=== PATIENT | female | born 1945 | race Caucasian/White ===

== ENCOUNTER → 2016-08-29 | Outpatient (CLI) | payer MEDICARE, BC ==
[2016-08-29 16:26] LABS: ABSOLUTE BASOPHILS # (AUTO) 0.1 10^3/uL (0.0-0.2); ABSOLUTE EOSINOPHILS # (AUTO) 0.1 10^3/uL (0.0-0.6); ABSOLUTE LYMPHOCYTES (AUTO) 1.9 10^3/uL (0.5-4.7); ABSOLUTE MONOCYTES (AUTO) 0.7 10^3/uL (0.1-1.4); ABSOLUTE NEUT (AUTO) 5.1 10^3/uL (1.7-8.2); BASOPHILS % (AUTO) 0.9 % (0-2); EOSINOPHILS % (AUTO) 1.6 % (0-6); HEMATOCRIT 43.3 % (36.0-47.0); HEMOGLOBIN 13.6 g/dL (12.0-15.5); HGB HCT DIFFERENCE -2.5; LYMPHOCYTES % (AUTO) 24.5 % (13-45); MEAN CORPUSCULAR HEMOGLOBIN 28.6 pg (27.0-33.4); MEAN CORPUSCULAR HGB CONC 31.5 g/dL (32.0-36.0); MEAN CORPUSCULAR VOLUME 91 fl (80-97); MONOCYTES % (AUTO) 8.3 % (3-13); RED BLOOD COUNT 4.76 10^6/uL (3.72-5.28); SEGMENTED NEUTROPHILS % (AUTO) 64.7 % (42-78); WHITE BLOOD COUNT 7.9 10^3/uL (4.0-10.5)
== END ==
LOC: OD 15:19
PROVIDERS: ATTEND Internal Medicine Pulmonary Disease
DX: J44.9 Chronic obstructive pulmonary disease, unspecified (principal)
CPT/HCPCS: 36415; 71020; 85025

== ENCOUNTER 2016-10-03 10:04 | Emergency (ER) | payer MEDICARE, BC ==
[2016-10-03] MEDS ORDERED: ASPIRIN 81 MG TABLET, CHEWABLE PO ONE (10:11)
--- NOTE | 2016-10-03 10:33 | ER Document Report ---
ED Medical Screen (RME) - General Chief Complaint: Chest Pain Stated Complaint: CHEST PAIN Mode of Arrival: Ambulatory Information source: Patient Notes: 71 y/o F presents to ED c/o persistent productive cough over the last month. Denies fever or hemoptysis. I have greeted and performed a rapid initial assessment of this patient. A comprehensive ED assessment and evaluation of the patient, analysis of test results and completion of the medical decision making process will be conducted by additional ED providers. TRAVEL OUTSIDE OF THE [place] IN LAST 30 DAYS: No - Related Data Allergies/Adverse Reactions: codeine [Codeine] Allergy (Verified 10/03/16 10:24) Sulfa (Sulfonamide Antibiotics) Allergy (Verified 10/03/16 10:24) Past Medical History - Social History Chew tobacco use (# tins/day): No Frequency of alcohol use: Occasional Drug Abuse: None - Past Medical History Cardiac Medical History: Reports: Hx Hypercholesterolemia, Hx Hypertension Denies: Hx Heart Attack Pulmonary Medical History: Reports: Hx COPD Denies: Hx Asthma Neurological Medical History: Denies: Hx Cerebrovascular Accident, Hx Seizures Renal/ Medical History: Denies: Hx Peritoneal Dialysis GI Medical History: Denies: Hx Hepatitis, Hx Hiatal Hernia, Hx Ulcer Infectious Medical History: Denies: Hx Hepatitis Past Surgical History: Reports: Hx Appendectomy, Hx Bowel Surgery - colon resection, Hx Hysterectomy. Denies: Hx Mastectomy, Hx Open Heart Surgery, Hx Pacemaker Physical Exam - Vital signs Vitals: Temp Pulse Resp BP Pulse Ox 97.9 F 59 L 18 140/77 H 95 10/03/16 10:10/03/16 10:10/03/16 10:10/03/16 10:10/03/16 10:21 - General General appearance: Appears well, Alert In distress: None - Respiratory Respiratory status: No respiratory distress Breath sounds: Rhonchi Course - Vital Signs Vital signs: Temp Pulse Resp BP Pulse Ox 97.9 F 59 L 18 140/77 H 10/03/16 10:10/03/16 10:10/03/16 10:10/03/16 10:10/03/16 10:21
[2016-10-03] MEDS ORDERED: LIDOCAINE 2% VISCOUS SOLN 20 ML UDCUP PO ONE (11:36)
[2016-10-03] MEDS ORDERED: MAG HYDROX/AL HYDROX/SIMETH SUSP 30 ML UDCUP PO ONE (11:36)
[2016-10-03] MEDS ORDERED: METOCLOPRAMIDE HCL ORAL SOLN 10 MG/10 ML UDCUP PO ONE (11:36)
--- NOTE | 2016-10-03 13:35 | ER Document Report ---
ED General - General Chief Complaint: Cough Stated Complaint: CHEST PAIN Mode of Arrival: Ambulatory TRAVEL OUTSIDE OF THE [place] IN LAST 30 DAYS: No - HPI Patient complains to provider of: congestion cough Notes: Patient's coming in for evaluation of congestion and cough. Patient has a history of COPD and states that she currently does smoke. States she saw her PCP for this back in August was started on antibiotic with no relief in her symptoms. Patient states he still has congestion cough and pain in the upper chest throat region. Patient states she then saw a local cardboard cutter Dr. Roth date placed the patient on another antibiotic and pills for cough states that she still is now better. Upon evaluation patient is neurologically she distress. Denies any fevers chills nausea vomiting. - Related Data Allergies/Adverse Reactions: codeine [Codeine] Allergy (Verified 10/03/16 10:24) Sulfa (Sulfonamide Antibiotics) Allergy (Verified 10/03/16 10:24) Past Medical History - General Information source: Patient - Social History Smoking Status: Current Every Day Smoker Chew tobacco use (# tins/day): No Frequency of alcohol use: Occasional Drug Abuse: None Family History: Reviewed & Not Pertinent Patient has suicidal ideation: No Patient has homicidal ideation: No - Past Medical History Cardiac Medical History: Reports: Hx Hypercholesterolemia, Hx Hypertension Denies: Hx Heart Attack Pulmonary Medical History: Reports: Hx COPD Denies: Hx Asthma Neurological Medical History: Denies: Hx Cerebrovascular Accident, Hx Seizures Renal/ Medical History: Denies: Hx Peritoneal Dialysis GI Medical History: Denies: Hx Hepatitis, Hx Hiatal Hernia, Hx Ulcer Infectious Medical History: Denies: Hx Hepatitis Past Surgical History: Reports: Hx Appendectomy, Hx Bowel Surgery - colon resection, Hx Hysterectomy. Denies: Hx Mastectomy, Hx Open Heart Surgery, Hx Pacemaker Review of Systems - Review of Systems Constitutional: No symptoms reported EENT: No symptoms reported Cardiovascular: No symptoms reported Respiratory: Other - Cough congestion Gastrointestinal: No symptoms reported Genitourinary: No symptoms reported Female Genitourinary: No symptoms reported Musculoskeletal: No symptoms reported Skin: No symptoms reported Hematologic/Lymphatic: No symptoms reported Neurological/Psychological: No symptoms reported Physical Exam - Vital signs Vitals: Temp Pulse Resp BP Pulse Ox 97.9 F 59 L 18 140/77 H 95 10/03/16 10:21 10/03/16 10:21 10/03/16 10:21 10/03/16 10:21 10/03/16 10:21 Interpretation: Normal - General General appearance: Appears well, Alert - HEENT Head: Normocephalic, Atraumatic Eyes: Normal Pupils: PERRL - Respiratory Respiratory status: No respiratory distress Chest status: Nontender Breath sounds: Normal Chest palpation: Normal - Cardiovascular Rhythm: Regular Heart sounds: Normal auscultation Murmur: No - Abdominal Inspection: Normal Distension: No distension Bowel sounds: Normal Tenderness: Nontender Organomegaly: No organomegaly - Back Back: Normal, Nontender - Extremities General upper extremity: Normal inspection, Nontender, Normal color, Normal ROM , Normal temperature General lower extremity: Normal inspection, Nontender, Normal color, Normal ROM , Normal temperature, Normal weight bearing. No: Luis's sign - Neurological Neuro grossly intact: Yes Cognition: Normal Orientation: AAOx4 [place] Coma Scale Eye Opening: Spontaneous Sabrina Coma Scale Verbal: Oriented Sabrina Coma Scale Motor: Obeys Commands [place] Coma Scale Total: 15 Speech: Normal Motor strength normal: LUE, RUE, LLE, RLE Sensory: Normal - Psychological Associated symptoms: Normal affect, Normal mood - Skin Skin Temperature: Warm Skin Moisture: Dry Skin Color: Normal Course - Re-evaluation Re-evalutation: 10/03/16 14:49 Patient's chest x-ray was clear. Patient continued to complain of throat pain and congestion. I did give the patient a GI cocktail to see this will aid in her symptoms as that the patient has been on multiple antibiotics possible GERD. This did not relieve the patient's symptoms as that when I reevaluated her she cough to clear her throat and states that she feels still very congested. Splinted the patient more likely this is progression of her COPD and that she may end up with a chronic cough and chronic congestion. Patient was not receptive to this information and started demanding her discharge papers. These were provided to the nursing staff. Otherwise EKG chest x-ray physical examination is not consistent with any critical etiology I feel the patient is safe to follow-up with her PCP or her now cardboard cutter for chronic cough - Vital Signs Vital signs: Temp Pulse Resp BP Pulse Ox 97.9 F 59 L 18 140/77 H 95 10/03/16 10:21 10/03/16 10:21 10/03/16 10:21 10/03/16 10:21 10/03/16 10:21 Discharge - Discharge Clinical Impression: Chronic cough COPD (chronic obstructive pulmonary disease) Qualifiers: COPD type: unspecified COPD Qualified Code(s): J44.9 - Chronic obstructive pulmonary disease, unspecified Condition: Good Disposition: HOME, SELF-CARE Instructions: Chronic Obstructive Lung Disease ([facility]) Additional Instructions: People with COPD who continue to smoke can develop chronic cough chronic congestion. I recommend following up with Dr. Roth for further evaluation. You can take Mucinex [id number] to help out with your congestion. Please make sure that you drink plenty water. Your chest x-ray today and your EKG showed no signs of any serious etiology. Prescriptions: Guaifenesin [Mucinex] 1,200 mg PO BID #30 [id number] Forms: Smoking Cessation Education Referrals: MARSHALL ESCALANTE DO [Primary Care Provider] - Follow up in 3-5 days
[2016-10-03 15:00] VITALS: BP 132/64
--- NOTE | 2016-10-03 15:27 | EKG REPORT ---
SEVERITY:- ABNORMAL ECG - SINUS RHYTHM LEFT ATRIAL ABNORMALITY RIGHT AXIS DEVIATION T ABNORMALITIES, LATERAL LEADS RELATED TO OLD LATERAL WI. : Confirmed by: Jose A Porter MD 03-Oct-2016 15:26:07
== END 2016-10-03 13:34 | disposition home or self-care (01) ==
LOC: ER 10:04
DX: J44.9 Chronic obstructive pulmonary disease, unspecified (principal); R05 Cough; R07.9 Chest pain, unspecified; R09.81 Nasal congestion; F17.210 Nicotine dependence, cigarettes, uncomplicated
CPT/HCPCS: 93005; 99283; 71020; 93010; J3490; A9270

== ENCOUNTER 2016-11-11 08:40 | Inpatient (IN) | payer MEDICARE, BC ==
[2016-11-11] MEDS ORDERED: ASPIRIN 81 MG TABLET, CHEWABLE PO ONE (08:56)
[2016-11-11] MEDS ORDERED: IPRATROPIUM/ALBUTEROL 0.5-2.5 MG/3 ML AMPUL NEB ONE (09:11)
[2016-11-11] MEDS ORDERED: MAGNESIUM SULFATE/D5W 100 ML IV ONE (09:12)
[2016-11-11] MEDS ORDERED: NORMAL SALINE 1000 ML 1,000 ML IV ONE (09:12)
[2016-11-11 09:42] LABS: PROTHROMBIN TIME 12.3 SEC (11.4-15.4)
[2016-11-11 09:43] LABS: ABSOLUTE BASOPHILS # (AUTO) 0.1 10^3/uL (0.0-0.2); ABSOLUTE EOSINOPHILS # (AUTO) 0.1 10^3/uL (0.0-0.6); ABSOLUTE LYMPHOCYTES (AUTO) 1.1 10^3/uL (0.5-4.7); ABSOLUTE MONOCYTES (AUTO) 1.3 10^3/uL (0.1-1.4); ABSOLUTE NEUT (AUTO) 10.9 10^3/uL (1.7-8.2); BASOPHILS % (AUTO) 1.1 % (0-2); EOSINOPHILS % (AUTO) 0.9 % (0-6); HEMATOCRIT 41.7 % (36.0-47.0); HEMOGLOBIN 13.7 g/dL (12.0-15.5); HGB HCT DIFFERENCE -0.6; LYMPHOCYTES % (AUTO) 8.3 % (13-45); MEAN CORPUSCULAR HGB CONC 32.8 g/dL (32.0-36.0); MEAN CORPUSCULAR VOLUME 88 fl (80-97); MONOCYTES % (AUTO) 9.8 % (3-13); RED BLOOD COUNT 4.72 10^6/uL (3.72-5.28); RED CELL DISTRIBUTION WIDTH 13.6 % (11.5-14.0); SEGMENTED NEUTROPHILS % (AUTO) 79.9 % (42-78); WHITE BLOOD COUNT 13.7 10^3/uL (4.0-10.5)
[2016-11-11 09:59] LABS: ALANINE AMINOTRANSFERASE 33 U/L (9-52); ALBUMIN 3.9 g/dL (3.5-5.0); ALKALINE PHOSPHATASE 89 U/L (38-126); ANION GAP 9 (5-19); ASPARTATE AMINO TRANSFERASE 30 U/L (14-36); BILIRUBIN,DIRECT 0.2 mg/dL (0.0-0.4); BILIRUBIN,TOTAL 0.7 mg/dL (0.2-1.3); BLOOD UREA NITROGEN 12 mg/dL (7-20); CALCIUM 9.5 mg/dL (8.4-10.2); CARBON DIOXIDE 30 mmol/L (22-30); CHLORIDE 104 mmol/L (98-107); CREATINE KINASE 55 U/L (30-135); CREATININE RESULT 0.52 mg/dL (0.52-1.25); GLUCOSE 121 mg/dL (75-110); LIPASE 28.5 U/L (23-300); MAGNESIUM 1.7 mg/dL (1.6-2.3); SODIUM 142.7 mmol/L (137-145)
[2016-11-11 10:11] LABS: CREATINE KINASE MB 1.43 ng/mL (<4.55)
[2016-11-11 10:12] LABS: TROPONIN I < 0.012 ng/mL
[2016-11-11] MEDS ORDERED: METHYLPREDNISOLONE INJ 125 MG/2 ML SDV IV ONE ×2 (11:51→12:59)
--- NOTE | 2016-11-11 13:08 | ER Document Report ---
ED General - General Chief Complaint: Breathing Difficulty Stated Complaint: DIFFICULTY BREATHING, FEVER TRAVEL OUTSIDE OF THE [place] IN LAST 30 DAYS: No - HPI Patient complains to provider of: difficulty in breathing Notes: Patient coming in for evaluation of shortness of breath difficulty in breathing ongoing for the past few days. Patient states approximately one week for this she was having multiple bouts of nausea vomiting diarrhea. Denies any recent travel denies temperature home others patient states that 99 is a fever for her. Patient does have a history of COPD to see local racking technician Dr. Roth. Patient denies any recent antibiotics last 2 weeks however multiple antibiotics through the month of September and October. Patient also pointed chronic cough white sputum production. Denies chest pain abdominal pain patient was found to be hypoxic patient was placed on oxygen - Related Data Allergies/Adverse Reactions: codeine [Codeine] Allergy (Verified 11/11/16 08:46) Sulfa (Sulfonamide Antibiotics) Allergy (Verified 11/11/16 08:46) Past Medical History - Social History Smoking Status: Unknown if Ever Smoked Family History: Reviewed & Not Pertinent Patient has suicidal ideation: No Patient has homicidal ideation: No - Past Medical History Cardiac Medical History: Reports: Hx Hypercholesterolemia, Hx Hypertension Denies: Hx Heart Attack Pulmonary Medical History: Reports: Hx COPD Denies: Hx Asthma Neurological Medical History: Denies: Hx Cerebrovascular Accident, Hx Seizures Renal/ Medical History: Denies: Hx Peritoneal Dialysis GI Medical History: Denies: Hx Hepatitis, Hx Hiatal Hernia, Hx Ulcer Infectious Medical History: Denies: Hx Hepatitis Past Surgical History: Reports: Hx Appendectomy, Hx Bowel Surgery - colon resection, Hx Hysterectomy. Denies: Hx Mastectomy, Hx Open Heart Surgery, Hx Pacemaker Review of Systems - Review of Systems Constitutional: No symptoms reported EENT: No symptoms reported Cardiovascular: No symptoms reported Respiratory: Short of breath, Wheezing Gastrointestinal: No symptoms reported Genitourinary: No symptoms reported Female Genitourinary: No symptoms reported Musculoskeletal: No symptoms reported Skin: No symptoms reported Hematologic/Lymphatic: No symptoms reported Neurological/Psychological: No symptoms reported -: Yes All other systems reviewed and negative Physical Exam - Vital signs Vitals: Temp Pulse Resp BP Pulse Ox 99.0 F 87 42 H 133/92 H 94 11/11/16 08:48 11/11/16 08:48 11/11/16 08:48 11/11/16 08:48 11/11/16 08:48 Interpretation: Normal - General General appearance: Appears well, Alert - HEENT Head: Normocephalic, Atraumatic Eyes: Normal Pupils: PERRL - Respiratory Respiratory status: Tachypnea Chest status: Nontender Breath sounds: Wheezing Chest palpation: Normal - Cardiovascular Rhythm: Regular Heart sounds: Normal auscultation Murmur: No - Abdominal Inspection: Normal Distension: No distension Bowel sounds: Normal Tenderness: Nontender Organomegaly: No organomegaly - Back Back: Normal, Nontender - Extremities General upper extremity: Normal inspection, Nontender, Normal color, Normal ROM , Normal temperature General lower extremity: Normal inspection, Nontender, Normal color, Normal ROM , Normal temperature, Normal weight bearing. No: Luis's sign - Neurological Neuro grossly intact: Yes Cognition: Normal Orientation: AAOx4 [place] Coma Scale Eye Opening: Spontaneous Sabrina Coma Scale Verbal: Oriented [place] Coma Scale Motor: Obeys Commands Be[place] Coma Scale Total: 15 Speech: Normal Motor strength normal: LUE, RUE, LLE, RLE Sensory: Normal - Psychological Associated symptoms: Normal affect, Normal mood - Skin Skin Temperature: Warm Skin Moisture: Dry Skin Color: Normal Course - Re-evaluation Re-evalutation: 11/11/16 14:50 Patient's lab work chest x-ray did not reveal any critical etiology. Patient states improvement upon receiving magnesium steroids and albuterol. Patient was ambulated around the ER however became hypoxic. Patient's case was discussed with hospitalist will admit patient for further evaluation - Vital Signs Vital signs: Temp Pulse Resp BP Pulse Ox 99.0 F 87 22 H 160/81 H 93 11/11/16 08:48 11/11/16 08:48 11/11/16 11:01 11/11/16 14:06 11/11/16 14:06 - Laboratory Result Diagrams: 11/11/16 09:23 11/11/16 09:23 Laboratory results interpreted by me: 11/11/16 11/11/16 11/11/16 09:23 09:23 11:30 WBC 13.7 H Seg Neutrophils % 79.9 H Lymphocytes % 8.3 L Absolute Neutrophils 10.9 H Glucose 121 H Urine Ketones TRACE H Discharge - Discharge Clinical Impression: COPD exacerbation, Hypoxia Admitting Provider: Hospitalist Stella Diaz
[2016-11-11 14:07] LABS: AMORPHOUS SEDIMENT,URINE TRACE /HPF; APPEARANCE,URINE CLOUDY; BILIRUBIN,URINE NEGATIVE (NEGATIVE); GLUCOSE, URINE NEGATIVE (NEGATIVE); KETONES,URINE TRACE mg/dL (NEGATIVE); LEUKOCYTE ESTERASE,URINE NEGATIVE (NEGATIVE); NITRITE,URINE NEGATIVE (NEGATIVE); PROTEIN,URINE NEGATIVE (NEGATIVE); URINE SPECIFIC GRAVITY 1.006; UROBILINOGEN,URINE NEGATIVE mg/dL (<2.0)
[2016-11-11] MEDS ORDERED: ALBUTEROL SULFATE 0.083% NEB 2.5 MG/3 ML AMPUL NEB ONE (14:48)
[2016-11-11] MEDS ORDERED: ONDANSETRON HCL INJ/PF 4 MG/2 ML SDV IV PRN (15:06)
[2016-11-11] MEDS ORDERED: LEVALBUTEROL HCL NEB 1.25 MG/3 ML AMPUL NEB PRN (15:06)
--- NOTE | 2016-11-11 15:33 | PDOC H&P ---
History of Present Illness Admission Date/PCP: 11/11/16 13:13 MARSHALL ESCAALNTE DO Patient complains of: Shortness of breath History of Present Illness: FLORES NIELSON is a 71 year old female, history of COPD apparently started getting short of breath for the last 5 days. Patient reports she was exposed to viral infection last week where she had nausea and episode of vomiting and diarrhea. Symptoms eventually resolved after 3 days. No intake of antibiotic recently. No intake of foods. No recent travel. Right after getting better from a stomach virus patient started to develop shortness of breath. There is cough that is nonproductive. No pleurisy. There is associated wheezing and some lightheadedness. Patient will take her inhaler affording some relief of symptoms. Likewise there is associated low-grade fever. Patient initially had a sore throat as well that spontaneously resolved. Shortness of breath persisted. There is no diaphoresis, no palpitation, no PND or orthopnea, no increasing lower extremity swelling. Symptoms got worse for the past 24 hours, where she woke up this morning with shortness of breath and wheezing, with a lot of dry coughing. Patient took her pulse oximeter and noted that her O2 saturation was in the 70s. She started panicking, but she was able to move around where her oxygen saturation improving the 80s, her daughter came in who brought her to the hospital. Patient was given nebulizers, steroids with some relief of symptoms. The patient was then referred for admission. No hemoptysis noted. No weight loss. No leg pain or swelling. Past Medical History Cardiac Medical History: Reports: Hyperlipidema, Hypertension Denies: Myocardial Infarction Pulmonary Medical History: Reports: Chronic Obstructive Pulmonary Disease (COPD) Denies: Asthma Neurological Medical History: Denies: Seizures GI Medical History: Denies: Hepatitis, Hiatal Hernia Hematology: Denies: Anemia, Sickle Cell Disease Past Surgical History Past Surgical History: Reports: Appendectomy, Hysterectomy Denies: Amputation, Mastectomy, Pacemaker Social History Information Source: Patient Smoking Status: Current Every Day Smoker Frequency of Alcohol Use: Rare Hx Recreational Drug Use: No Drugs: None Family History Family History: Malignancy - Colon cancer, Other - Kidney disease Parental Family History Reviewed: Yes Children Family History Reviewed: Yes Sibling(s) Family History Reviewed.: Yes Medication/Allergy Home Medications: Budesonide/Formoterol Fumarate [Symbicort HFA 160-4.5 mcg Inhaler 6 gm] 2 puff IH BID 11/11/16 Clonazepam [Klonopin] 0.5 mg PO BID 11/11/16 Lisinopril [Prinivil 10 mg Tablet] 10 mg PO DAILY 11/11/16 Paroxetine HCl [Paxil 20 mg Tablet] 20 mg PO QPM 11/11/16 Simvastatin [Zocor 20 mg Tablet] 20 mg PO QPM 11/11/16 Trazodone HCl [Desyrel 50 mg Tablet] 50 mg PO BID 11/11/16 Allergies/Adverse Reactions: codeine [Codeine] Allergy (Verified 11/11/16 08:46) Sulfa (Sulfonamide Antibiotics) Allergy (Verified 11/11/16 08:46) Review of Systems Constitutional: PRESENT: fatigue, weakness - Generalized. ABSENT: chills, fever (s), headache(s), weight gain, weight loss Eyes: ABSENT: visual disturbances Ears: ABSENT: hearing changes Nose, Mouth, and Throat: PRESENT: sore throat - Resolved. ABSENT: mouth pain Cardiovascular: PRESENT: dyspnea on exertion. ABSENT: chest pain, edema, orthropnea, palpitations Respiratory: PRESENT: cough, dyspnea. ABSENT: hemoptysis, sputum Gastrointestinal: ABSENT: abdominal pain, constipation, diarrhea, dysphagia, hematemesis, hematochezia, melena, nausea, vomiting Genitourinary: ABSENT: difficulty urinating, dysuria, hematuria Musculoskeletal: ABSENT: joint swelling Integumentary: ABSENT: pruritus, rash, wounds Neurological: ABSENT: abnormal gait, abnormal speech, confusion, dizziness, focal weakness, syncope Psychiatric: ABSENT: anxiety, depression, homidical ideation, suicidal ideation Endocrine: ABSENT: cold intolerance, heat intolerance, polydipsia, polyuria Hematologic/Lymphatic: ABSENT: easy bleeding, easy bruising Physical Exam Vital Signs: Temp Pulse Resp BP Pulse Ox 99.0 F 87 22 H 160/81 H 93 11/11/16 08:48 11/11/16 08:48 11/11/16 11:01 11/11/16 14:06 11/11/16 14:06 General appearance: PRESENT: no acute distress, cooperative, mild distress, well -developed, well-nourished, other - In complete sentences with some interruptions Head exam: PRESENT: atraumatic, normocephalic Eye exam: PRESENT: conjunctiva pink, EOMI, PERRLA. ABSENT: scleral icterus Ear exam: PRESENT: normal external ear exam. ABSENT: drainage Mouth exam: PRESENT: moist, neck supple, tongue midline Throat exam: ABSENT: post pharyngeal erythema, tonsillar erythema Neck exam: ABSENT: carotid bruit, JVD, lymphadenopathy, thyromegaly Respiratory exam: PRESENT: decreased breath sounds - Bilateral, wheezes - Minimal. ABSENT: rales, rhonchi Cardiovascular exam: PRESENT: RRR. ABSENT: diastolic murmur, rubs, systolic murmur Pulses: PRESENT: normal dorsalis pedis pul Vascular exam: PRESENT: normal capillary refill GI/Abdominal exam: PRESENT: normal bowel sounds, soft. ABSENT: distended, guarding, mass, organolmegaly, rebound, tenderness Rectal exam: PRESENT: deferred Extremities exam: PRESENT: full ROM. ABSENT: calf tenderness, clubbing, pedal edema Neurological exam: PRESENT: alert, awake, oriented to person, oriented to place , oriented to time, oriented to situation Psychiatric exam: PRESENT: appropriate affect, normal mood. ABSENT: homicidal ideation, suicidal ideation Skin exam: PRESENT: dry, intact, warm. ABSENT: cyanosis, rash Results Impressions: Chest X-Ray 11/11/16 08:56 IMPRESSION: NO ACUTE RADIOGRAPHIC FINDING IN THE CHEST. Assessment & Plan - Diagnosis (1) COPD exacerbation Is this a current diagnosis for this admission?: Yes (2) Hypoxia Is this a current diagnosis for this admission?: Yes (3) Leukocytosis, unspecified Qualifiers: Leukocytosis type: unspecified Qualified Code(s): D72.829 - Elevated white blood cell count, unspecified Is this a current diagnosis for this admission?: Yes (4) Essential hypertension Is this a current diagnosis for this admission?: Yes (5) Hyperlipidemia Qualifiers: Hyperlipidemia type: unspecified Qualified Code(s): E78.5 - Hyperlipidemia, unspecified Is this a current diagnosis for this admission?: Yes - Time Time Spent: 50 to 70 Minutes Anticipated discharge: Home Within: within 72 hours - Inpatient Certification Based on my medical assessment, after consideration of the patient's comorbidities, presenting symptoms, or acuity I expect that the services needed warrant INPATIENT care.: Yes I certify that my determination is in accordance with my understanding of Medicare's requirements for reasonable and necessary INPATIENT services [42 CFR 412.3e].: Yes Medical Necessity: Significant Comorbidiites Make Outpatient Treatment Too Risky , Need Close Monitoring Due to Risk of Patient Decompensation, Need For Continuous Telemetry Monitoring, Risk of Complication if Not Cared For in Hospital Post Hospital Care: D/C Rug Washer Documentation - Plan Summary Plan Summary: The patient will be admitted to telemetry. Gentle IV hydration will be started , intravenous steroid and [id number] nebulizers will also be started. We will put the patient on IV antibiotics. Supplemental oxygen will be given. DVT prophylaxis with Lovenox will be placed. Further testing depends on the initial evaluation as outlined above.
[2016-11-11] MEDS ORDERED: ENOXAPARIN SODIUM INJ 40 MG/0.4 ML DISP.SYRIN SUBCUT ONE (17:00)
[2016-11-11] MEDS ORDERED: (PENDING PHARMACY ID) (Clonazepam [Klonopin] 0.5 MG) PO SCH (18:00)
[2016-11-11] MEDS ORDERED: NICOTINE 21 MG/24 HR PATCH.TD24 TD ONE (18:21)
[2016-11-11] MEDS: IPRATROPIUM BROMIDE 0.02% NEB 0.5 MG/2.5 ML AMPUL NEB SCH ×2 (18:25→22:02)
[2016-11-11] MEDS: LEVALBUTEROL HCL NEB 1.25 MG/3 ML AMPUL NEB SCH ×2 (18:26→22:02)
[2016-11-11] MEDS: NORMAL SALINE 1000 ML 1,000 ML IV PRN (18:30)
[2016-11-11] MEDS: TRAZODONE HCL 50 MG TABLET PO SCH (20:17)
[2016-11-11] MEDS: DOCUSATE SODIUM 100 MG CAPSULE PO SCH (20:17)
[2016-11-11] MEDS: CLONAZEPAM 1 MG TABLET PO SCH (20:17)
[2016-11-11] MEDS: PAROXETINE HCL 20 MG TABLET PO SCH (20:17)
[2016-11-11] MEDS: CIPROFLOXACIN 400 MG/D5W RTU 400 MG/200 ML RTUPB IV SCH (21:02)
[2016-11-11] MEDS: METHYLPREDNISOLONE INJ 125 MG/2 ML SDV IV SCH (21:02)
--- NOTE | 2016-11-11 22:24 | EKG REPORT ---
SEVERITY:- ABNORMAL ECG - SINUS RHYTHM AINSLEY, CONSIDER BIATRIAL ABNORMALITIES RIGHT AXIS DEVIATION : Confirmed by: Farhana García MD 11-Nov-2016 22:24:03
[2016-11-12] MEDS: LEVALBUTEROL HCL NEB 1.25 MG/3 ML AMPUL NEB SCH ×5 (00:59→20:29)
[2016-11-12] MEDS: IPRATROPIUM BROMIDE 0.02% NEB 0.5 MG/2.5 ML AMPUL NEB SCH ×5 (00:59→20:29)
[2016-11-12] MEDS: SIMVASTATIN 10 MG TABLET PO SCH ×2 (02:39→23:12)
[2016-11-12] MEDS: METHYLPREDNISOLONE INJ 125 MG/2 ML SDV IV SCH ×4 (02:39→23:14)
[2016-11-12] MEDS: ACETAMINOPHEN 325 MG TABLET PO PRN (02:43)
[2016-11-12] MEDS: NORMAL SALINE 1000 ML 1,000 ML IV PRN (02:43)
[2016-11-12] MEDS: LANSOPRAZOLE 30 MG TAB.RAP.DR PO SCH (05:34)
[2016-11-12] MEDS: CIPROFLOXACIN 400 MG/D5W RTU 400 MG/200 ML RTUPB IV SCH ×2 (05:35→17:39)
[2016-11-12 06:42] LABS: APPEARANCE,URINE CLEAR; BILIRUBIN,URINE NEGATIVE (NEGATIVE); GLUCOSE, URINE 50 mg/dL (NEGATIVE); KETONES,URINE NEGATIVE (NEGATIVE); LEUKOCYTE ESTERASE,URINE NEGATIVE (NEGATIVE); NITRITE,URINE NEGATIVE (NEGATIVE); PROTEIN,URINE NEGATIVE (NEGATIVE); URINE SPECIFIC GRAVITY 1.008; UROBILINOGEN,URINE NEGATIVE mg/dL (<2.0)
[2016-11-12 07:41] LABS: MAGNESIUM 1.8 mg/dL (1.6-2.3)
[2016-11-12] MEDS: ENOXAPARIN SODIUM INJ 40 MG/0.4 ML DISP.SYRIN SUBCUT SCH (08:30)
[2016-11-12] MEDS: LISINOPRIL 10 MG TABLET PO SCH (10:03)
[2016-11-12] MEDS: CLONAZEPAM 1 MG TABLET PO SCH ×3 (10:09→23:13)
[2016-11-12] MEDS: DOCUSATE SODIUM 100 MG CAPSULE PO SCH ×2 (10:09→17:40)
[2016-11-12] MEDS: TRAZODONE HCL 50 MG TABLET PO SCH ×3 (10:10→23:13)
[2016-11-12] MEDS ORDERED: NORMAL SALINE 1000 ML 1,000 ML IV PRN (11:38)
--- NOTE | 2016-11-12 11:42 | PDOC PROGRESS REPORT ---
Subjective Progress Note for:: 11/12/16 Subjective:: Breathing is much better. Wheezing has resolved. However the patient started to develop some jitteriness, mild tremors. No reported temperature spikes, nausea or vomiting, diarrhea, nor chest pain. Patient denies PND or orthopnea. Physical Exam Vital Signs: Temp Pulse Resp BP Pulse Ox 97.9 F 72 20 153/74 H 93 11/12/16 08:07 11/12/16 09:39 11/12/16 09:39 11/12/16 08:07 11/12/16 09:39 Intake & Output 11/11/16 11/12/16 11/13/16 06:59 06:59 06:59 Intake Total 440 Balance 440 Weight 76.657 kg General appearance: PRESENT: no acute distress, cooperative Head exam: PRESENT: normocephalic Eye exam: PRESENT: EOMI Mouth exam: PRESENT: moist, neck supple Neck exam: ABSENT: JVD Respiratory exam: PRESENT: decreased breath sounds - Bilateral, other - Good air entry however. ABSENT: rhonchi, wheezes Cardiovascular exam: PRESENT: RRR. ABSENT: gallop GI/Abdominal exam: PRESENT: normal bowel sounds, soft. ABSENT: distended, tenderness Extremities exam: ABSENT: pedal edema Neurological exam: PRESENT: alert, awake, oriented to person, oriented to place , oriented to time, oriented to situation Skin exam: PRESENT: dry, warm. ABSENT: cyanosis Results Laboratory Results: 11/12/16 11/12/16 05:45 06:16 Phosphorus 4.0 Magnesium 1.8 Urine Color YELLOW Urine Appearance CLEAR Urine pH 6.0 Ur Specific [place] 1.008 Urine Protein NEGATIVE Urine Glucose (UA) 50 H Urine Ketones NEGATIVE Urine Blood NEGATIVE Urine Nitrite NEGATIVE Ur Leukocyte Esterase NEGATIVE Urine RBC (Auto) 1 Impressions: Chest X-Ray 11/11/16 08:56 IMPRESSION: NO ACUTE RADIOGRAPHIC FINDING IN THE CHEST. Assessment & Plan - Diagnosis (1) COPD exacerbation Is this a current diagnosis for this admission?: Yes (2) Hypoxia Is this a current diagnosis for this admission?: Yes (3) Leukocytosis, unspecified Qualifiers: Leukocytosis type: unspecified Qualified Code(s): D72.829 - Elevated white blood cell count, unspecified Is this a current diagnosis for this admission?: Yes (4) Essential hypertension Is this a current diagnosis for this admission?: Yes (5) Hyperlipidemia Qualifiers: Hyperlipidemia type: unspecified Qualified Code(s): E78.5 - Hyperlipidemia, unspecified Is this a current diagnosis for this admission?: Yes - Time Time Spent with patient: 25-34 minutes - Plan Summary Plan Summary: We will decrease the steroid dose and frequency. We will decrease the nebulizer frequency. Out of bed. Physical therapy. Continue other medication and supportive care. If patient continues to improve by the morning likely can be discharged back home.
[2016-11-12] MEDS ORDERED: NICOTINE 21 MG/24 HR PATCH.TD24 TD ONE (14:00)
[2016-11-12] MEDS: PAROXETINE HCL 20 MG TABLET PO SCH ×2 (17:40→23:13)
[2016-11-13] MEDS: ACETAMINOPHEN 325 MG TABLET PO PRN ×3 (00:27→14:55)
[2016-11-13] MEDS: LEVALBUTEROL HCL NEB 1.25 MG/3 ML AMPUL NEB SCH ×4 (02:13→19:45)
[2016-11-13] MEDS: IPRATROPIUM BROMIDE 0.02% NEB 0.5 MG/2.5 ML AMPUL NEB SCH ×4 (02:13→19:44)
[2016-11-13] MEDS: CIPROFLOXACIN 400 MG/D5W RTU 400 MG/200 ML RTUPB IV SCH ×2 (06:33→17:21)
[2016-11-13] MEDS: LANSOPRAZOLE 30 MG TAB.RAP.DR PO SCH (06:33)
[2016-11-13] MEDS: METHYLPREDNISOLONE INJ 125 MG/2 ML SDV IV SCH ×3 (06:33→20:41)
[2016-11-13] MEDS: NICOTINE 21 MG/24 HR PATCH.TD24 TD SCH (10:07)
[2016-11-13] MEDS: LISINOPRIL 10 MG TABLET PO SCH (10:07)
[2016-11-13] MEDS: DOCUSATE SODIUM 100 MG CAPSULE PO SCH ×2 (10:07→17:20)
[2016-11-13] MEDS: ENOXAPARIN SODIUM INJ 40 MG/0.4 ML DISP.SYRIN SUBCUT SCH (10:08)
[2016-11-13] MEDS: BUDESONIDE/FORMOTEROL 160-4.5 MCG 60 PUFF/6 GM MDI IH SCH ×2 (10:10→17:21)
[2016-11-13] MEDS: TRAZODONE HCL 50 MG TABLET PO SCH ×2 (10:11→21:53)
[2016-11-13] MEDS: CLONAZEPAM 1 MG TABLET PO SCH (10:11)
--- NOTE | 2016-11-13 11:07 | PDOC PROGRESS REPORT ---
Subjective Progress Note for:: 11/13/16 Subjective:: Patient's shortness of breath is better but still having difficulty especially on ambulation. Denies any nausea or vomiting, diarrhea, chills or fever. Patient reports that she was able to move around for 30 minutes yesterday but started feeling more short of breath at the end. Physical Exam Vital Signs: Temp Pulse Resp BP Pulse Ox 98.2 F 68 20 154/85 H 99 11/13/16 09:00 11/13/16 09:00 11/13/16 09:00 11/13/16 09:00 11/13/16 09:00 Intake & Output 11/12/16 11/13/16 11/14/16 06:59 06:59 06:59 Intake Total 440 1935 Output Total 1500 Balance 440 435 Weight 76.657 kg 79.7 kg General appearance: PRESENT: no acute distress Head exam: PRESENT: normocephalic Eye exam: PRESENT: EOMI Mouth exam: PRESENT: moist, neck supple Neck exam: ABSENT: JVD Respiratory exam: PRESENT: rhonchi - scattered. ABSENT: wheezes Cardiovascular exam: PRESENT: RRR. ABSENT: gallop GI/Abdominal exam: PRESENT: soft. ABSENT: distended, tenderness Extremities exam: ABSENT: pedal edema Neurological exam: PRESENT: alert, awake Skin exam: PRESENT: dry, warm. ABSENT: cyanosis Results Impressions: Chest X-Ray 11/11/16 08:56 IMPRESSION: NO ACUTE RADIOGRAPHIC FINDING IN THE CHEST. Assessment & Plan - Diagnosis (1) COPD exacerbation Is this a current diagnosis for this admission?: Yes (2) Hypoxia Is this a current diagnosis for this admission?: Yes (3) Leukocytosis, unspecified Qualifiers: Leukocytosis type: unspecified Qualified Code(s): D72.829 - Elevated white blood cell count, unspecified Is this a current diagnosis for this admission?: Yes (4) Essential hypertension Is this a current diagnosis for this admission?: Yes (5) Hyperlipidemia Qualifiers: Hyperlipidemia type: unspecified Qualified Code(s): E78.5 - Hyperlipidemia, unspecified Is this a current diagnosis for this admission?: Yes - Time Time Spent with patient: 25-34 minutes - Plan Summary Plan Summary: We are going to push him back intravenous steroids, discontinue prednisone. Obtain CTA of the chest to evaluate for pulmonary embolism. Likewise this will define pulmonary anatomy as well for possible pneumonia. Continue him on antibiotics for now. Continue bronchodilators. Continue supportive care.
[2016-11-13] MEDS: CLONAZEPAM 1 MG TABLET PO PRN ×2 (14:55→21:53)
[2016-11-13] MEDS: SIMVASTATIN 10 MG TABLET PO SCH (21:53)
[2016-11-13] MEDS: PAROXETINE HCL 20 MG TABLET PO SCH (21:53)
[2016-11-14] MEDS: LEVALBUTEROL HCL NEB 1.25 MG/3 ML AMPUL NEB SCH ×3 (02:03→15:07)
[2016-11-14] MEDS: IPRATROPIUM BROMIDE 0.02% NEB 0.5 MG/2.5 ML AMPUL NEB SCH ×3 (02:03→15:07)
[2016-11-14] MEDS: METHYLPREDNISOLONE INJ 125 MG/2 ML SDV IV SCH ×2 (03:02→08:40)
[2016-11-14] MEDS: LANSOPRAZOLE 30 MG TAB.RAP.DR PO SCH (06:30)
[2016-11-14] MEDS: CIPROFLOXACIN 400 MG/D5W RTU 400 MG/200 ML RTUPB IV SCH (06:30)
[2016-11-14] MEDS: ENOXAPARIN SODIUM INJ 40 MG/0.4 ML DISP.SYRIN SUBCUT SCH (08:40)
[2016-11-14] MEDS: BUDESONIDE/FORMOTEROL 160-4.5 MCG 60 PUFF/6 GM MDI IH SCH (09:14)
[2016-11-14] MEDS: DOCUSATE SODIUM 100 MG CAPSULE PO SCH (09:15)
[2016-11-14] MEDS: LISINOPRIL 10 MG TABLET PO SCH (09:15)
[2016-11-14] MEDS: TRAZODONE HCL 50 MG TABLET PO SCH (09:15)
[2016-11-14] MEDS: NICOTINE 21 MG/24 HR PATCH.TD24 TD SCH (09:16)
--- NOTE | 2016-11-14 09:59 | PDOC DISCHARGE SUMMARY ---
General - Admit/Disc Date/PCP Admission Date/Primary Care Provider: 11/11/16 15:07 MARSHALL ESCALANTE, Discharge Date: 11/14/16 - Discharge Diagnosis (1) COPD exacerbation Is this a current diagnosis for this admission?: Yes (2) Hypoxia Is this a current diagnosis for this admission?: Yes (3) Acute bronchitis Is this a current diagnosis for this admission?: Yes (4) Essential hypertension Is this a current diagnosis for this admission?: Yes (5) Hyperlipidemia Is this a current diagnosis for this admission?: Yes - Additional Information Discharge Diet: Cardiac - low-fat low-salt Discharge Activity: Activity As Tolerated, Balance Activity w/Rest, Slowly Increase Activity Home Medications: Budesonide/Formoterol Fumarate [Symbicort HFA 160-4.5 mcg Inhaler 6 gm] 2 puff IH BID 11/11/16 Clonazepam [Klonopin] 0.5 mg PO BID 11/11/16 Lisinopril [Prinivil 10 mg Tablet] 10 mg PO DAILY 11/11/16 Paroxetine HCl [Paxil 20 mg Tablet] 20 mg PO QPM 11/11/16 Simvastatin [Zocor 20 mg Tablet] 20 mg PO QPM 11/11/16 Trazodone HCl [Desyrel 50 mg Tablet] 50 mg PO BID 11/11/16 Ipratropium/Albuterol Sulfate [Duoneb 3 ml Ampul] 3 ml NEB [id number] PRN #120 vial.neb 11/14/16 Levofloxacin [Levaquin 750 mg Tablet] 750 mg PO DAILY #7 tab 11/14/16 Prednisone [Sterapred Ds] 1 pkg PO ASDIR PRN 12 Days 11/14/16 Additional Information: Stop smoking. Home oxygen at 2 L nasal cannula. History of Present Illness Patient complains of: Shortness of breath History of Present Illness: FLORES NIELSON is a 71 year old female, history of COPD apparently started getting short of breath for the last 5 days. Patient reports she was exposed to viral infection last week where she had nausea and episode of vomiting and diarrhea. Symptoms eventually resolved after 3 days. No intake of antibiotic recently. No intake of foods. No recent travel. Right after getting better from a stomach virus patient started to develop shortness of breath. There is cough that is nonproductive. No pleurisy. There is associated wheezing and some lightheadedness. Patient will take her inhaler affording some relief of symptoms. Likewise there is associated low-grade fever. Patient initially had a sore throat as well that spontaneously resolved. Shortness of breath persisted. There is no diaphoresis, no palpitation, no PND or orthopnea, no increasing lower extremity swelling. Symptoms got worse for the past 24 hours, where she woke up this morning with shortness of breath and wheezing, with a lot of dry coughing. Patient took her pulse oximeter and noted that her O2 saturation was in the 70s. She started panicking, but she was able to move around where her oxygen saturation improving the 80s, her daughter came in who brought her to the hospital. Patient was given nebulizers, steroids with some relief of symptoms. The patient was then referred for admission. No hemoptysis noted. No weight loss. No leg pain or swelling. Hospital Course Hospital Course: The patient was admitted to telemetry. Patient was started on intravenous antibiotic, [id number] nebulizer, and intravenous steroids. Patient's respiratory discomfort improved, but continues to have intermittent paroxysmal coughing. Patient measures her oxygen saturation with her oximeter and sometimes it is low like 88. Patient had a CT scan of the chest performed, showing no infiltrate, nor pulmonary embolism. She was continued on her anxiety medication and likewise placed on nicotine patch as patient is a chronic smoker . Patient initially reluctant about going home with home oxygen but eventually agreed for home oxygen as she wants to go back home and continue treatment on an outpatient basis. The rest of the hospital stays unremarkable. environmental emergencies planner was consulted for home oxygen and home health for physical therapy. Patient advised to stop smoking. Physical Exam Vital Signs: Temp Pulse Resp BP Pulse Ox 97.9 F 75 16 139/79 H 92 11/14/16 00:35 11/14/16 08:17 11/14/16 08:17 11/14/16 00:35 11/14/16 08:17 Intake & Output 11/13/16 11/14/16 11/15/16 06:59 06:59 06:59 Intake Total 1935 1300 Output Total 1500 Balance 435 1300 Weight 79.7 kg 81.2 kg General appearance: PRESENT: no acute distress, cooperative Head exam: PRESENT: normocephalic Eye exam: PRESENT: EOMI Mouth exam: PRESENT: moist, neck supple Neck exam: ABSENT: JVD Respiratory exam: PRESENT: rhonchi - occasional. ABSENT: wheezes Cardiovascular exam: PRESENT: RRR. ABSENT: gallop GI/Abdominal exam: PRESENT: soft. ABSENT: distended, tenderness Extremities exam: ABSENT: pedal edema Neurological exam: PRESENT: alert, awake, oriented to situation Skin exam: PRESENT: dry, warm. ABSENT: cyanosis Results Impressions: Chest X-Ray 11/11/16 08:56 IMPRESSION: NO ACUTE RADIOGRAPHIC FINDING IN THE CHEST. Chest/Abdomen CTA 11/13/16 00:00 IMPRESSION: 1. No acute or suspicious thoracic findings. No pulmonary embolus. Mild COPD. Qualifiers PATEINT BEING DISCHARGED WITH ANY OF THE FOLLOWING DIAGNOSIS?: No Plan Discharge Plan: Follow-up with primary care physician in 3-5 days. Time Spent: Less than 30 Minutes
[2016-11-14 13:25] VITALS: BP 130/70
== END 2016-11-14 14:00 | disposition home health service (06) | DRG 192 ==
LOC: ER 08:40 → EH 13:13 → UNDOADMIN 13:13 → EH 15:07 → 4N 11-12 01:51
PROC: 3E0F73Z Introduction of Anti-inflammatory into Respiratory Tract, Via Natural or Artificial Opening (ICD-10-PCS; principal; 2016-11-11)
DX: J44.1 Chronic obstructive pulmonary disease with (acute) exacerbation (principal); J20.9 Acute bronchitis, unspecified; J44.0 Chronic obstructive pulmonary disease with (acute) lower respiratory infection; I10 Essential (primary) hypertension; E78.5 Hyperlipidemia, unspecified; R09.02 Hypoxemia; F17.200 Nicotine dependence, unspecified, uncomplicated; F41.9 Anxiety disorder, unspecified; Z79.899 Other long term (current) drug therapy; Z90.710 Acquired absence of both cervix and uterus; Z80.0 Family history of malignant neoplasm of digestive organs; Z88.6 Allergy status to analgesic agent; Z88.2 Allergy status to sulfonamides; Z90.49 Acquired absence of other specified parts of digestive tract; D72.829 Elevated white blood cell count, unspecified
CPT/HCPCS: 36415; 71010; 71275; 80053; 81001; 82550; 82553; 83690; 83735; 84100; 84484; 85025; 85610; 87804; 93005; 93010; 94640; 96365; 99285; G8978-GP; G8979-GP; J0744; J1650; J2930; J3475; J3490; J7030; J7620

== ENCOUNTER 2017-11-13 07:40 | Day surgery (SDC) | payer MEDICARE, BC ==
[~2017-11-13 07:40] MED LIST: PROPOFOL INJ 200 MG/20 ML VIAL IV ONE
[2017-11-13 09:12] VITALS: BP 138/63
--- NOTE | 2017-11-13 13:12 | Operative Report ---
Operative Report DATE OF SURGERY: 11/13/17 Operative Report: The risks, benefits and alternatives of the procedure including risks of bleeding, perforation requiring surgery are explained to the patient in detail and informed consent is obtained. Patient is taken back to the endoscopy suite and placed in a left, lateral decubital position. Timeout is called. Propofol medication is administered. A rectal examination is done which did not reveal any masses, tears or fissures. An Olympus videoscope was inserted into the patient's rectum. It is carefully advanced all the way to the cecum. The cecum is identified by the usual anatomical landmarks including the ileocecal valve as well as the appendiceal office. Photodocumentation is obtained. The scope was then sequentially pulled back via the various segments of the colon including the ascending colon, hepatic flexure, transverse colon, splenic flexure, descending colon finally in to the rectosigmoid portions of the colon. Retroflexion maneuvers performed. Prep is good. PREOPERATIVE DIAGNOSIS: Personal history of polyps POSTOPERATIVE DIAGNOSIS: 2 diminutive polyps removed via biopsy forceps. Internal hemorrhoids OPERATION: Colonoscopy with biopsy SURGEON: BARB NICHOLSON ANESTHESIA: LMAC TISSUE REMOVED OR ALTERED: As noted above. COMPLICATIONS: None. ESTIMATED BLOOD LOSS: None. INTRAOPERATIVE FINDINGS: As noted above. PROCEDURE: Patient tolerated procedure well. No immediate postprocedure complications are noted. Patient discharged in good condition. Discharge date 11/13/2017. Discharge diet: Regular. Discharge activity: Regular. 2-3 week follow-up to discuss findings. Patient is instructed to call the office or proceed to the emergency room should there be any further problems or questions. Depending on the pathology of the polyp 3-5 year surveillance colonoscopy.
== END 2017-11-13 09:00 | disposition home or self-care (01) ==
LOC: END 07:40
PROVIDERS: ATTEND Internal Medicine Gastroenterology
PROC: 0DBE8ZX Excision of Large Intestine, Via Natural or Artificial Opening Endoscopic, Diagnostic (ICD-10-PCS; 2017-11-13)
PROC: 0DBN8ZX Excision of Sigmoid Colon, Via Natural or Artificial Opening Endoscopic, Diagnostic (ICD-10-PCS; principal; 2017-11-13 08:30)
DX: Z12.11 Encounter for screening for malignant neoplasm of colon (principal); K63.5 Polyp of colon; K64.8 Other hemorrhoids; Z86.010 Personal history of colon polyps
CPT/HCPCS: 45380; 88305 ×2; J2704; 812

== ENCOUNTER → 2018-06-13 | Outpatient (CLI) | payer MEDICARE, BC ==
--- NOTE | 2018-06-13 14:11 | WOMENS IMAGING REPORT ---
EXAM DESCRIPTION: BONE DENSITY HIP/SPINE COMPLETED DATE/TIME: 06/13/2018 1:49 pm REASON FOR STUDY: BONE DENSITY M81.0 Z12.31 ENCNTR SCREEN MAMMOGRAM FOR MALIGNANT NEOPLASM OF AKASH M 81.0 AGE-RELATED OSTEOPOROSIS W/O CURRENT PATHOLOGICAL FRAC Z78.0 ASYMPTOMATIC MENOPAUSAL STATE COMPARISON: None. TECHNIQUE: Dual-Energy X-ray Absorptiometry (DEXA) of the AP Spine and Hip. LIMITATIONS: None. FINDINGS: LUMBAR SPINE: The bone mineral density (BMD) measured from L1-L4 in the AP projection correlates with a T-score of -0.8, which is normal as defined by the World Health Organization. HIP: The bone mineral density (BMD) measured in the left hip correlates with a T-score of -0.6 in the femo ral neck, which is normal as defined by the World Health Organization. IMPRESSION: 1. LUMBAR SPINE: Normal 2. HIP: Normal COMMENT: The World Health Organization defines low BMD as follows: T-score: Normal: Greater than -1.0 Osteopenia: Between -1.0 and -2.5 Osteoporosis: Less than -2.5 without fractures Established osteoporosis: Less than -2.5 with fractures In general, you may wish to consider: Diagnosis Treatment Follow-up DEXA Normal BMD Prevention 2-3 years Osteopenia Prevention/Therapy 1-2 years Osteoporosis Therapy Yearly TECHNICAL DOCUMENTATION: JOB ID: [id number]- All Rights Reserved Reading location - IP/workstation name: [email or web address]
--- NOTE | 2018-06-13 16:05 | WOMENS IMAGING REPORT ---
EXAM DESCRIPTION: 3D SCREENING MAMMO BILAT COMPLETED DATE/TIME: 06/13/2018 1:49 pm REASON FOR STUDY: BILATERAL SCREENING MAMMO 3D/Z12.31 Z12.31 ENCNTR SCREEN MAMMOGRAM FOR MALIGNANT NEOPLASM OF AKASH M81.0 AGE-RELATED OSTEOPOROSIS W/O CURRENT PATHOLOGICAL FRAC Z78.0 ASYMPTOMATIC ME NOPAUSAL STATE COMPARISON: 2014 TECHNIQUE: Standard craniocaudal and mediolateral oblique views of each breast recorded using digita l acquisition and breast tomosynthesis. LIMITATIONS: None. FINDINGS: No masses, calcifications or architectural distortion. No areas of suspicion. Read with the assistance of CAD. .[facility] - R2 Cenova Version 1.3 .[facility] - R2 Cenova Version 1.3 .[facility] - R2 Cenova Version 2.4 .[facility] [place] - R2 Cenova Version 2.4 .[facility] - R2 Exhaust Machine Operator Version 9.2 IMPRESSION: NORMAL MAMMOGRAM. BIRADS 1. BREAST DENSITY: a. The breasts are almost entirely fatty. BIRAD: 1 NEGATIVE RECOMMENDATION: ROUTINE SCREENING COMMENT: The patient has been notified of the results by letter per SA requirements. Additional no tification policies are in place for contacting patient with suspicious or incomplete findings. Quality ID #225: The [employer] recommends an annual screening mammogram for women aged 40 years or over. This facility utilizes a reminder system to ensure that all patients receive reminder letters, and/or direct phone calls for appointments. This includes reminders for routine scr eening mammograms, diagnostic mammograms, or other Breast Imaging Interventions when appropriate. Th is patient will be placed in the appropriate reminder system. The [employer] (ACR) has developed recommendations for screening MRI of the breast s in certain patient populations, to be used in conjunction with mammography. Breast MRI surveillanc e may be appropriate for women with more than 20% lifetime risk of developing breast cancer as deter mined by genetic testing, significant family history of the disease, or history of mantle radiation f or Hodgkins Disease. ACR Practice Guidelines 2008. DBT Technology DBT is a type of tomographic mammography. With conventional mammography, overlapping breast tissue ma y make lesions difficult to detect, even with good compression. DBT uses an x-ray tube that rotates a round the breast, taking images at different angles. These images are then combined to create thin sl ices of the breast that the radiologist can view as a 3D reconstruction. The Hologic unit can perform full-field digital mammograms (2D imaging); or DBT (3D imaging); or both, in a combination mode that quickly performs both the mammogram and the tomosynthesis scan while the breast is still compressed. PQRS 6045F: Fluoroscopic imaging is not utilized for breast tomosynthesis. TECHNICAL DOCUMENTATION: FINDING NUMBER: (1) ASSESSMENT: (1) JOB ID: [id number] [employer]- All Rights Reserved Reading location - IP/workstation name: [email or web address]
== END ==
LOC: WI 13:15
PROVIDERS: ATTEND Student in an Organized Health Care Education/Training Program
DX: Z12.31 Encounter for screening mammogram for malignant neoplasm of breast (principal); M81.8 Other osteoporosis without current pathological fracture
CPT/HCPCS: 77063; 77067; 77080

== ENCOUNTER → 2018-08-10 | Outpatient (CLI) | payer MEDICARE, BC ==
--- NOTE | 2018-08-10 16:20 | XCELERA REPORT ---
[address] [facility] [address] Lower Extremity Venous Evaluation Procedure: Color flow and duplex imaging bilaterally of the veins of the lower extremities as well as the Common Femoral veins. Right Sided Venous Evaluation Normal vessel filling wall to wall, compression and augmentation as well as Colour flow down to the infrageniculate veins. Left Sided Venous Evaluation Normal vessel filling wall to wall, compression and augmentation as well as Colour flow down to the infrageniculate veins. Interpretation Summary No duplex evidence of DVT or obstruction in the bilateral lower extremities. Name: FLORES NIELSON Age: 73 yrs Gender: Female : 1945 Patient Status: Outpatient Patient Location: Study Date: 08/10/2018 12:29 PM Reason For Study: PAIN Ordering Physician: MARSHALL ESCALANTE Performed By: Ingris Panda : MARSHALL ESCALANTE > Ricardo Tello
--- NOTE | 2018-08-13 09:03 | XCELERA REPORT ---
[address] [facility] [address] Lower Extremity Venous Evaluation Procedure: Color flow and duplex imaging bilaterally of the veins of the lower extremities as well as the Common Femoral veins. Right Sided Venous Evaluation Normal vessel filling wall to wall, compression and augmentation as well as Colour flow down to the infrageniculate veins. Left Sided Venous Evaluation Normal vessel filling wall to wall, compression and augmentation as well as Colour flow down to the infrageniculate veins. Interpretation Summary No duplex evidence of DVT or obstruction in the bilateral lower extremities. Name: FLORES NIELSON Age: 73 yrs Gender: Female : 1945 Patient Status: Outpatient Patient Location: Study Date: 08/10/2018 11:25 AM Reason For Study: PAIN IN RIGHT LOWER LEG Ordering Physician: MARSHALL ESCALANTE Performed By: Ingris Panda : MARSHALL ESCALANTE > Ricardo Tello
== END ==
LOC: SP 10:47
PROVIDERS: ATTEND Student in an Organized Health Care Education/Training Program
DX: M79.661 Pain in right lower leg (principal); I73.9 Peripheral vascular disease, unspecified; G60.9 Hereditary and idiopathic neuropathy, unspecified; R60.9 Edema, unspecified
CPT/HCPCS: 93922; 93970

== ENCOUNTER 2019-04-13 23:48 | Emergency (ER) | payer MEDICARE, BC | END 2019-04-14 | disposition left against medical advice (07) | LOC: ER 23:48 | DX: Z53.21 Procedure and treatment not carried out due to patient leaving prior to being seen by health care provider (principal) ==

== ENCOUNTER → 2019-06-25 | Outpatient (CLI) | payer MEDICARE, BC ==
--- NOTE | 2019-06-25 17:01 | RADIOLOGY REPORT (SQ) ---
EXAM DESCRIPTION: CT LUNG CANCER SCREENING COMPLETED DATE/TIME: 06/25/2019 10:23 am REASON FOR STUDY: PERSONAL HX NICOTINE DEPENDENCE (Z87.891) Z87.891 PERSONAL HISTORY OF NICOTINE DE PENDENCE Has the patient had a Chest CT scan within the past year? N Was the patient offered tobacco cessation counseling? Y Was the patient engaged in shared decision making for this test? Y Does the patient have signs or symptoms of Lung Cancer? N Is the patient a smoker? Y How many pack years? 57 How many years since quitting smoking? 0 Patients age: 74 COMPARISON: None. TECHNIQUE: Low Dose CT scan performed of the chest without intravenous contrast for purposes of scre ening for lung cancer. Images reviewed with lung, soft tissue and bone windows. Reconstructed coron al and sagittal MPR images reviewed. All images stored on PACS. All CT scanners at this facility use dose modulation, iterative reconstruction, and/or weight based d osing when appropriate to reduce radiation dose to as low as reasonably achievable (ALARA). [facility]: Dose Right [facility]: CareDose [facility]: Dose Right [facility]: Teradose 4D [facility]: Smart Technologies RADIATION DOSE: CT Rad equipment meets quality standard of care and radiation dose reduction techniq ues were employed. CTDIvol: 2.1 mGy. DLP: 97 mGy-cm. mGy. . LIMITATIONS: Hilum FINDINGS: LUNGS AND PLEURA: No masses or nodules. No pleural effusions or calcifications. No pne umothorax. Scattered scarring. HILAR AND MEDIASTINAL STRUCTURES: No identified masses. No abnormal nodes. HEART AND VASCULAR STRUCTURES: No aortic aneurysm. No pericardial effusion. No cardiac devices. CORONARY ARTERY CALCIFICATIONS: No significant calcifications. UPPER ABDOMEN, THYROID, BONES, OTHER SOFT TISSUES: No significant findings. IMPRESSION: NO SIGNIFICANT FINDING IN THE LUNGS ON NON-CONTRASTED CHEST CT. NO OTHER CLINICALLY SIGNIFICANT/POTENTIALLY CLINICALLY SIGNIFICANT FINDINGS LUNGRADS: LUNGRADS: 1 NEGATIVE. NO NODULES, OR DEFINITELY BENIGN NODULES MODIFIER: NONE RECOMMENDATION: Continue annual screening with LDCT in 12 months. COMMENT: CRITERIA: No lung nodules. Nodules with specific calcifications: Complete, central, popcorn, concentric rings and fat containin g nodules. TECHNICAL DOCUMENTATION: JOB ID: [id number] Quality ID # [id number]: Final reports with documentation of one or more dose reduction techniques (e.g., Au tomated exposure control, adjustment of the mA and/or kV according to patient size, use of iterative reconstruction technique) 2010 [facility] Radiology Reading location - IP/workstation name: [email or web address]
== END ==
LOC: RAD 09:45
PROVIDERS: ATTEND Internal Medicine Pulmonary Disease
DX: Z12.2 Encounter for screening for malignant neoplasm of respiratory organs (principal); Z09 Encounter for follow-up examination after completed treatment for conditions other than malignant neoplasm; Z87.891 Personal history of nicotine dependence
CPT/HCPCS: G0297

== ENCOUNTER → 2020-01-23 | Outpatient (CLI) | payer MEDICARE, BC ==
--- NOTE | 2020-01-23 10:51 | WOMENS IMAGING REPORT ---
EXAM DESCRIPTION: BILAT DIAGNOSTIC MAMMO W/CAD IMAGES COMPLETED DATE/TIME: 01/23/2020 10:13 am REASON FOR STUDY: N62 HYPERTROPHY OF BREAST N62 HYPERTROPHY OF BREAST COMPARISON: 06/13/2018 and 12/17/2014. EXAM PARAMETERS: Standard craniocaudal and mediolateral oblique views of each breast recorded using digital acquisition. True lateral images of both breasts acquired. Read with the assistance of CAD: .[facility] - [employer] Educator Version 9.2 LIMITATIONS: None. FINDINGS: RIGHT BREAST MASSES: No suspicious masses. CALCIFICATIONS: No new or suspicious calcifications. ARCHITECTURAL DISTORTION: None. ASYMMETRY: None noted. OTHER: No other significant findings. LEFT BREAST MASSES: No suspicious masses. CALCIFICATIONS: No new or suspicious calcifications. ARCHITECTURAL DISTORTION: None. ASYMMETRY: None noted. OTHER: No other significant finding. IMPRESSION: Stable mammographic appearance of both breasts. No worrisome findings. BREAST DENSITY: a. The breasts are almost entirely fatty. BIRAD: ASSESSMENT: 1 Negative. RECOMMENDATION: RECOMMENDED FOLLOW UP: Birads 1 or 2: No breast imaging finding to explain the patie nt's presenting complaint. Further intervention should be based on the degree of clinical suspicion. SPECIFIC INTERVENTION/IMAGING/CONSULTATION RECOMMENDED:No additional intervention/ imaging/consultati on needed at this time. COMMUNICATION:The imaging findings were not discussed with the patient. Her referring provider has be en notified of the findings. COMMENT: The patient has been notified of the results by letter per SA requirements. Additional no tification policies are in place for contacting patient with suspicious or incomplete findings. Quality ID #225: The [employer] recommends an annual screening mammogram for women aged 40 years or over. This facility utilizes a reminder system to ensure that all patients receive reminder letters, and/or direct phone calls for appointments. This includes reminders for routine scr eening mammograms, diagnostic mammograms, or other Breast Imaging Interventions when appropriate. Th is patient will be placed in the appropriate reminder system. TECHNICAL DOCUMENTATION: FINDING NUMBER: (1) ASSESSMENT: (1) JOB ID: [id number] 2010 [employer]- All Rights Reserved Reading location - IP/workstation name: [email or web address]
== END ==
LOC: WI 09:45
PROVIDERS: ATTEND Physician Assistant
DX: N62 Hypertrophy of breast (principal)
CPT/HCPCS: 77066

== ENCOUNTER 2020-07-02 19:54 | Emergency (ER) | payer MEDICARE, BC ==
--- NOTE | 2020-07-02 20:41 | ER Document Report ---
ED Medical Screen (RME) - General Chief Complaint: Breathing Difficulty Stated Complaint: DIFFICULTY BREATHING Time Seen by Provider: 07/02/20 20:38 Primary Care Provider: ALICE VASQUEZ MD [Primary Care Provider] - Follow up as needed Mode of Arrival: Medic Information source: Patient Notes: Patient is a 75-year-old female brought in to ER today via EMS with complaint of increasing shortness of breath. Patient states she has a history of COPD. She woke up this morning feeling congested and started with a productive yellowish cough. Patient states she has a normal temp of 97 so when she goes above 98 she starts feeling feverish. She also states she had to crank her home O2 up to around 2 L today in order to breathe better. Patient denies any known contacts with coronavirus. She states she wears a mask when she goes out she goes to the store is on place she goes. EMS reports that they did a rapid coronavirus test on her in the unit and she came back positive. Patient is questioning the accuracy of that rapid test. Patient does continue to smoke on a regular basis. And she has a history of COPD. Patient denies any history of diabetes or car diac disease. Physical examination: Patient is a well-nourished well-developed but frail- appearing 75-year-old female who is in no apparent distress tonight on examination. Cardiac: Patient displays a heart rate of 79 bpm on monitor no murmurs are auscultated. Lungs: Bilateral breath sounds decreased throughout scattered rhonchi in bilateral lobes with slight inspiratory aspiratory wheeze also noted. Abdomen: Bowel sounds present 4 quads nontender to palpate. I have greeted and performed a rapid initial assessment of this patient. A comprehensive ED assessment and evaluation of the patient, analysis of test results and completion of the medical decision making process will be conducted by additional ED providers. Dictation of this chart was performed using voice recognition software; therefore, there may be some unintended grammatical errors. TRAVEL OUTSIDE OF THE [place] IN LAST 30 DAYS: No - Related Data Allergies/Adverse Reactions: codeine [Codeine] Allergy (Severe, Verified 11/13/17 07:54) AMS Sulfa (Sulfonamide Antibiotics) Allergy (Unknown, Verified 11/13/17 07:54) Past Medical History - Past Medical History Cardiac Medical History: Reports: Hx Hypercholesterolemia, Hx Hypertension Denies: Hx Coronary Artery Disease, Hx Heart Attack Pulmonary Medical History: Reports: Hx COPD, Hx Pneumonia Denies: Hx Asthma, Hx Bronchitis Neurological Medical History: Denies: Hx Cerebrovascular Accident, Hx Seizures Renal/ Medical History: Denies: Hx Peritoneal Dialysis GI Medical History: Denies: Hx Hepatitis, Hx Hiatal Hernia, Hx Ulcer Musculoskeltal Medical History: Denies Hx Arthritis Psychiatric Medical History: Reports: Hx Depression Infectious Medical History: Denies: Hx Hepatitis Past Surgical History: Reports: Hx Appendectomy, Hx Bowel Surgery - colon resection, Hx Hysterectomy. Denies: Hx Mastectomy, Hx Open Heart Surgery, Hx Pacemaker - Immunizations Hx Diphtheria, Pertussis, Tetanus Vaccination: Yes Physical Exam - Vital signs Vitals: Pulse Ox 100 07/02/20 20:01 Course - Vital Signs Vital signs: Temp Pulse Resp BP Pulse Ox 99.1 F 22 H 135/95 H 100 07/02/20 20:18 07/02/20 20:02 07/02/20 20:02 07/02/20 20:02 Doctor's Discharge - Discharge Referrals: ALICE VASQUEZ MD [Primary Care Provider] - Follow up as needed
[2020-07-02] MEDS ORDERED: IPRATROPIUM/ALBUTEROL 0.5-2.5 MG/3 ML AMPUL NEB ONE (20:43)
[2020-07-02] MEDS ORDERED: METHYLPREDNISOLONE INJ 125 MG/2 ML SDV IV ONE (20:44)
[2020-07-02 20:57] LABS: ABSOLUTE BASOPHILS # (AUTO) 0.1 10^3/uL (0.0-0.2); ABSOLUTE EOSINOPHILS # (AUTO) 0.1 10^3/uL (0.0-0.6); ABSOLUTE LYMPHOCYTES (AUTO) 1.2 10^3/uL (0.5-4.7); ABSOLUTE MONOCYTES (AUTO) 0.7 10^3/uL (0.1-1.4); ABSOLUTE NEUT (AUTO) 3.8 10^3/uL (1.7-8.2); BASOPHILS % (AUTO) 1.7 % (0-2); EOSINOPHILS % (AUTO) 1.9 % (0-6); HEMATOCRIT 39.2 % (36.0-47.0); HEMOGLOBIN 12.5 g/dL (12.0-15.5); LYMPHOCYTES % (AUTO) 20.3 % (13-45); MEAN CORPUSCULAR HEMOGLOBIN 28.9 pg (27.0-33.4); MEAN CORPUSCULAR VOLUME 90 fl (80-97); MONOCYTES % (AUTO) 11.9 % (3-13); PLATELET COUNT 231 10^3/uL (150-450); RED BLOOD COUNT 4.33 10^6/uL (3.72-5.28); RED CELL DISTRIBUTION WIDTH 13.7 % (11.5-14.0); SEGMENTED NEUTROPHILS % (AUTO) 64.2 % (42-78); TOTAL CELLS COUNTED % (AUTO) 100 %
[2020-07-02 21:04] LABS: ALBUMIN 3.7 g/dL (3.5-5.0); ALKALINE PHOSPHATASE 59 U/L (38-126); ASPARTATE AMINO TRANSFERASE 25 U/L (14-36); BILIRUBIN,DIRECT 0.2 mg/dL (0.0-0.4); BILIRUBIN,TOTAL 0.3 mg/dL (0.2-1.3); BLOOD UREA NITROGEN 30 mg/dL (7-20); CALCIUM 9.3 mg/dL (8.4-10.2); CARBON DIOXIDE 30 mmol/L (22-30); CHLORIDE 106 mmol/L (98-107); GLUCOSE 101 mg/dL (75-110); POTASSIUM 4.2 mmol/L (3.6-5.0); TOTAL PROTEIN 6.2 g/dL (6.3-8.2)
[2020-07-02 21:09] LABS: ANION GAP 5 (5-19)
--- NOTE | 2020-07-02 21:28 | RADIOLOGY REPORT (SQ) ---
EXAM DESCRIPTION: XR CHEST 1 VIEW COMPLETED DATE/TME: 07/02/2020 21:04 CLINICAL HISTORY: 75 years, Female, Cough COMPARISON: None. NUMBER OF VIEWS: 1 TECHNIQUE: Portable AP upright view of the chest was obtained at 9:01 PM. LIMITATIONS: None. FINDINGS: Heart size is within normal limits. Lungs are clear. Aortic calcifications are noted. There is no evidence of pleural effusion or pneumothorax. No definite acute bony abnormality is seen. IMPRESSION: No acute abnormality as above. copyright 2010 [employer]- All Rights Reserved
[2020-07-02] MEDS ORDERED: AZITHROMYCIN 250 MG TABLET PO ONE (21:50)
[2020-07-02] MEDS: ALBUTEROL SULFATE HFA (90 MCG/PUFF) 8 GM MDI (1 MDI/ER DISP) IH SCH ×3 (22:21→22:59)
--- NOTE | 2020-07-02 22:40 | ER Document Report ---
ED General - General Chief Complaint: Breathing Difficulty Stated Complaint: DIFFICULTY BREATHING Time Seen by Provider: 07/02/20 20:38 Primary Care Provider: ALICE VASQUEZ MD [Primary Care Provider] - 07/06/20 Mode of Arrival: Medic Notes: 75-year-old female with COPD on home O2 approximately 2 L, hypertension, hyperlipidemia, diabetes presents with cough productive of white/yellow nonbl oody sputum and shortness of breath for the past approximately 2 days. Patient says she is been trying to stay home and instantly had concern for COVID-19 and has not had any known sick contacts but does go to the [employer] and do some errands. Lives with a friend who is not sick. Patient has used albuterol which temporarily helps symptoms but then they return. Patient denies any recent hosp italizations, fever, dizziness, fainting, vomiting, diarrhea, abdominal pain, chest pain, recent antibiotics, prior evaluation for current symptoms. Patient had positive rapid Covid by EMS. TRAVEL OUTSIDE OF THE [place] IN LAST 30 DAYS: No - Related Data Allergies/Adverse Reactions: codeine [Codeine] Allergy (Severe, Verified 11/13/17 07:54) AMS Sulfa (Sulfonamide Antibiotics) Allergy (Unknown, Verified 11/13/17 07:54) Past Medical History - General Information source: Patient, Emergency Med Personnel, [facility] Records - Social History Smoking Status: Unknown if Ever Smoked Family History: Malignancy, Other - Past Medical History Cardiac Medical History: Reports: Hx Hypercholesterolemia, Hx Hypertension Denies: Hx Coronary Artery Disease, Hx Heart Attack Pulmonary Medical History: Reports: Hx COPD, Hx Pneumonia Denies: Hx Asthma, Hx Bronchitis Neurological Medical History: Denies: Hx Cerebrovascular Accident, Hx Seizures Renal/ Medical History: Denies: Hx Peritoneal Dialysis GI Medical History: Denies: Hx Hepatitis, Hx Hiatal Hernia, Hx Ulcer Musculoskeletal Medical History: Denies Hx Arthritis Psychiatric Medical History: Reports: Hx Depression Infectious Medical History: Denies: Hx Hepatitis Past Surgical History: Reports: Hx Appendectomy, Hx Bowel Surgery - colon resection, Hx Hysterectomy. Denies: Hx Mastectomy, Hx Open Heart Surgery, Hx Pacemaker - Immunizations Hx Diphtheria, Pertussis, Tetanus Vaccination: Yes Hx Pneumococcal Vaccination: 04/07/17 Review of Systems - Review of Systems Notes: REVIEW OF SYSTEMS: CONSTITUTIONAL : Denies fever, chills, or sweats. EENT: Denies recent sinus symptoms, denies throat pain CARDIOVASCULAR: Denies chest pain, EDUARDO RESPIRATORY: + cough, + shortness of breath. GASTROINTESTINAL: Denies abdominal pain, nausea/vomiting. GENITOURINARY: Denies difficulty urinating, painful urination. MUSCULOSKELETAL: Denies neck pain, back pain. SKIN: Denies rash or skin lesions. HEMATOLOGIC : Denies easy bruising or bleeding. LYMPHATIC: Denies swollen, enlarged glands. NEUROLOGICAL: Denies headache, denies change in gait. PSYCHIATRIC: Denies anxiety or stress or depression. Physical Exam - Vital signs Vitals: Pulse Ox 100 07/02/20 20:01 - Notes Notes: PHYSICAL EXAMINATION: GENERAL: Well-appearing, well-nourished, talkative, upbeat elderly woman sitting up in stretcher with no signs of distress HEAD: Atraumatic, normocephalic. EYES: Pupils equal round and appropriate constriction, sclera anicteric, conjunctiva are normal. ENT: nares patent, moist mucous membranes. NECK: Normal range of motion, supple without lymphadenopathy LUNGS: Mild tachypnea, speaking in full sentences, no accessory muscle use, no tripoding, managing secretions, diffusely decreased air movement with expiratory wheezing and scattered rhonchi bilaterally HEART: Regular rate and rhythm without murmurs ABDOMEN: Soft, nontender, no guarding, no masses, no CVAT EXTREMITIES: Normal range of motion, no pitting or edema. No cyanosis. NEUROLOGICAL: Awake, alert, conversing appropriately, moves all extremities spontaneously. PSYCH: Normal mood, normal affect. SKIN: Warm, Dry, normal turgor, no rashes or lesions noted. Course - Re-evaluation Re-evalutation: 07/02/20 22:42 Patient with 2 days of productive cough and shortness of breath partially relieved by albuterol, positive rapid Covid, patient very well-appearing on exam, no signs of impending respiratory failure, decreased air movement but patient otherwise appears very well. Likely COVID-19 precipitated COPD exacerbation, rule out influenza, rule out pneumonia, rule out significant electrolyte abnormalities. Very likely discharge after reassessment, patient given steroids, albuterol, and azithromycin, then reevaluate, likely discharge on short course of prednisone, azithromycin, with PCP follow-up and return precautions. No signs of ACS or PE and no indication to rule out at this time. 07/02/20 23:42 Patient feels significantly improved after interventions, respiratory rate now normal, speaking in full sentences, normal respiratory effort, good air movement bilaterally, faint expiratory wheezing bilaterally. Patient expresses relief that her symptoms have so greatly improved since she arrived and feels comfortable going home. Says she lives with her friend who is able to quarant ine from her and get her medications and bring her food. Gave patient extensive follow-up instructions and home care instructions. Patient has pulse oximeter at home and has all her home oxygen supplies. Patient still at her home dose of oxygen and no emergent findings on chest x-ray and her labs had no emergent abnormalities. Patient was appropriate for trial of home management of likely COVID-19 symptoms. Will send on prednisone, standing albuterol, and azithromycin. Patient has televisit with her PCP on Monday. Gave extensive return to ED precautions which she demonstrated understanding of. Patient mildly dehydrated on labs, instructed to increase p.o. liquid intake. The patient was evaluated during the global COVID-19 pandemic and that diagnosis was suspected/considered upon their initial presentation. Their evaluation, treatment and testing was consistent with current guidelines for patients who present with complaints or symptoms that may be related to COVID-19. - Vital Signs Vital signs: Temp Pulse Resp BP Pulse Ox 99.1 F 22 H 135/95 H 100 07/02/20 20:18 07/02/20 20:02 07/02/20 20:02 07/02/20 20:02 - Laboratory Result Diagrams: 07/02/20 20:14 07/02/20 20:14 Laboratory results interpreted by me: 07/02/20 20:14 BUN 30 H Total Protein 6.2 L Discharge - Discharge Clinical Impression: Viral syndrome, COPD exacerbation Disposition: HOME, SELF-CARE Additional Instructions: Patient was provided with discharge information including: As a person under investigation for Covid 19, the [place] department of Health and Human Services, division of public health advises you to adhere to the following guidance until your test results are reported to you. If your test result is positive, you will receive additional information from your provider and your local health department at that time. Remain at home until you are cleared by the health provider or public health authorities. Keep a log of visitors to your home, notify any visitors to your home of your isolation status. If you plan to move to a new address or leave the county, notify the local health department in your County. Call your doctor or seek care if you have an urgent medical need. Before seeking medical care, call ahead to get instructions from the provider before arriving at the medical office clinic or hospital. Notify them that you are being tested for the virus that causes Covid 19 so that arrangements can be made, as necessary, to prevent transmission to others in the healthcare setting. Next, notify the local health department in your county. If a medical emergency arises and you need to call 911, inform the first responders that you are being tested for the virus that causes Covid 19. Next, notify the local health department in your county. Your symptoms are likely due to a COVID-19 infection which has made your COPD worse. Take all antibiotic and prednisone as prescribed. Use your albuterol 2 puffs with spacer every 4 hours over the next 5 days. Follow-up with your [facility] doctor within 3 days. If you have any worsening shortness of breath, lightheadedness, confusion, chest pain, dizziness, fainting, weakness, severe muscle pain, diarrhea or vomiting, or any other worsening or alarming symptoms please return to the emergency department immediately. Your blood work shows that you are slightly dehydrated, make an effort to drink at least 1 additional liter of liquid per day over the next 4 days. Prescriptions: Azithromycin 250 mg PO QAM 4 Days #4 tablet Prednisone [Deltasone 20 mg Tablet] 3 tab PO DAILY 5 Days #15 tablet Referrals: ALICE VASQUEZ MD [Primary Care Provider] - 07/06/20
[2020-07-02 23:30] LABS: A TYPE INFLUENZA AG NEGATIVE (NEGATIVE); B INFLUENZA AG NEGATIVE (NEGATIVE)
[2020-07-03 00:08] VITALS: BP 127/61
== END 2020-07-03 01:09 | disposition home or self-care (01) ==
LOC: ER 19:54
DX: U07.1 COVID-19 (principal); J44.1 Chronic obstructive pulmonary disease with (acute) exacerbation; B34.9 Viral infection, unspecified; E78.00 Pure hypercholesterolemia, unspecified; I10 Essential (primary) hypertension; E78.5 Hyperlipidemia, unspecified; Z99.81 Dependence on supplemental oxygen; Z88.6 Allergy status to analgesic agent; Z88.2 Allergy status to sulfonamides
CPT/HCPCS: 99284; 96374; 36415; 83735; 85025; 80053; 87804; 71045; U0003; A9270 ×2; J2930; C9803; 87635; J3490